=== PATIENT | male | born 1955 | race African-American/Black ===

== ENCOUNTER → 2016-11-12 | Outpatient (CLI) | payer BC ==
[2016-11-12 14:53] LABS: BASOPHILS % 0.7 % (0.0-2.0); EOSINOPHILS % 3.7 % (0.0-5.0); HEMATOCRIT. 44.5 % (42.0-52.0); HEMOGLOBIN. 14.7 g/dL (14.0-18.0); LYMPHOCYTES % 22.3 % (20.0-50.0); MONOCYTES % 10.1 % (2.0-8.0); NEUTROPHILS % 63.2 % (40.0-76.0); PLATELET 183 x1000/uL (130-400); RED BLOOD CELL COUNT 4.89 mill/uL (4.7-6.1); RED CELL DISTRIBUTION WIDTH 14.4 % (11.6-14.6)
[2016-11-12 14:58] LABS: ALANINE AMINOTRANSFERASE 51 IU/L (13-61); ALBUMIN 3.5 g/dL (3.4-5.0); ANION GAP 13; CARBON DIOXIDE 31 mEq/L (21-32); CHLORIDE 101 mEq/L (98-107); HDL CHOLESTEROL 52 mg/dL (40-59); INDEX HEMOLYSI 1 (1-3); INDEX ICTERIC 1 (1-4); INDEX LIPEMIC 1 (1-3); LDL CHOLESTEROL 55 mg/dL (5-100); TRIGLYCERIDE 188 mg/dL (0-150); UREA NITROGEN BLOOD 19 mg/dL (7-21); eGFR > 60 mL/min (>60)
[2016-11-14 10:47] LABS: *CREATININE RANDOM URINE 140.2 mg/dL (Not Estab.); MICROALBUMIN/CREATININE RATIO 55.6 mg/g creat (0.0-30.0)
[2016-11-16 04:17] LABS: % FREE PSA 31.5 % (.); PSA FREE 0.63 ng/mL
== END | disposition home or self-care (01) ==
LOC: LAB 13:59
PROVIDERS: ATTEND Family Medicine
DX: E11.21 Type 2 diabetes mellitus with diabetic nephropathy (principal); J45.20 Mild intermittent asthma, uncomplicated
CPT/HCPCS: 36415; 80053; 80061; 82043; 82570; 84153; 84154; 84403; 85025; 86803

== ENCOUNTER → 2018-04-05 | Outpatient (CLI) | payer BC ==
[2018-04-05 08:52] LABS: CHLORIDE 98 mEq/L (98-107)
[2018-04-05 09:00] LABS: LDL CHOLESTEROL 42 mg/dL (5-100)
[2018-04-05 09:03] LABS: HDL CHOLESTEROL 38 mg/dL (40-59)
[2018-04-06 08:30] LABS: *CREATININE RANDOM URINE 85.3 mg/dL (Not Estab.); MICROALBUMIN RANDOM URINE 47.5 ug/mL (Not Estab.)
== END | disposition home or self-care (01) ==
LOC: LAB 07:32
PROVIDERS: ATTEND Family Medicine
DX: E11.21 Type 2 diabetes mellitus with diabetic nephropathy (principal); E78.1 Pure hyperglyceridemia
CPT/HCPCS: 36415; 80053; 80061; 82043; 82570; 83036

== ENCOUNTER → 2018-05-19 | Outpatient (CLI) | payer BC | END | disposition home or self-care (01) | LOC: LAB 12:30 | PROVIDERS: ATTEND Family Medicine | DX: E11.21 Type 2 diabetes mellitus with diabetic nephropathy (principal); E11.69 Type 2 diabetes mellitus with other specified complication | CPT/HCPCS: 36415; 84132 ==

== ENCOUNTER → 2019-03-13 | Outpatient (CLI) | payer BC ==
[2019-03-15 08:07] LABS: % FREE PSA 34.1 % (.); PROSTATE SPECIFIC AG TOTAL 1.7 ng/mL (0.0-4.0); PSA FREE 0.58 ng/mL
== END | disposition home or self-care (01) ==
LOC: LAB 12:39
DX: N40.0 Benign prostatic hyperplasia without lower urinary tract symptoms (principal)
CPT/HCPCS: 36415; 84153; 84154; G0103

== ENCOUNTER → 2020-07-31 | Outpatient (CLI) | payer BC ==
[2020-07-31 13:01] LABS: BASOPHILS % 1.2 % (0.0-2.0); EOSINOPHILS % 3.2 % (0.0-5.0); HEMATOCRIT. 41.6 % (42.0-52.0); HEMOGLOBIN. 13.7 g/dL (14.0-18.0); LYMPHOCYTES % 26.1 % (20.0-50.0); MEAN CORPUSCULAR HEMOGLOBIN 30.6 pg (28.0-32.0); MEAN CORPUSCULAR VOLUME 93.1 fL (80.0-94.0); MEAN PLATELET VOLUME 7.4 fl (7.4-10.4); MONOCYTES % 11.2 % (2.0-8.0); NEUTROPHILS % 58.3 % (40.0-76.0); PLATELET 166 x1000/uL (130-400); RED BLOOD CELL COUNT 4.47 mill/uL (4.7-6.1); RED CELL DISTRIBUTION WIDTH 14.6 % (11.6-14.6)
[2020-07-31 13:19] LABS: CHLORIDE 106 mEq/L (98-107)
== END | disposition home or self-care (01) ==
LOC: LAB 12:09
PROVIDERS: ATTEND Podiatrist Foot & Ankle Surgery
DX: L97.524 Non-pressure chronic ulcer of other part of left foot with necrosis of bone (principal); E11.621 Type 2 diabetes mellitus with foot ulcer; E11.42 Type 2 diabetes mellitus with diabetic polyneuropathy; M86.172 Other acute osteomyelitis, left ankle and foot
CPT/HCPCS: 36415; 80053; 85025; 85651

== ENCOUNTER → 2020-08-28 | Outpatient (CLI) | payer BC ==
[2020-08-28 12:51] LABS: BASOPHILS % 0.7 % (0.0-2.0); HEMATOCRIT. 43.9 % (42.0-52.0); HEMOGLOBIN. 14.4 g/dL (14.0-18.0); LYMPHOCYTES % 21.7 % (20.0-50.0); MEAN CORPUSCULAR HEMOGLOBIN 30.7 pg (28.0-32.0); MEAN CORPUSCULAR VOLUME 93.6 fL (80.0-94.0); MEAN PLATELET VOLUME 8.3 fl (7.4-10.4); MONOCYTES % 13.8 % (2.0-8.0); NEUTROPHILS % 59.8 % (40.0-76.0); PLATELET 147 x1000/uL (130-400); RED BLOOD CELL COUNT 4.69 mill/uL (4.7-6.1); RED CELL DISTRIBUTION WIDTH 14.4 % (11.6-14.6)
[2020-08-28 13:23] LABS: CLARITY URINE CLEAR (CLEAR); COLOR URINE YELLOW (YELLOW); KETONES URINE NEGATIVE (NEGATIVE); LEUKOCYTE ESTERASE URINE NEGATIVE (NEGATIVE); NITRITE URINE NEGATIVE (NEGATIVE); OCCULT BLOOD URINE NEGATIVE (NEGATIVE); PH URINE 6.5 (4.5-8.0); PROTEIN URINE NEGATIVE (NEGATIVE); SPECIFIC GRAVITY URINE 1.015 (1.005-1.030)
[2020-08-28 14:24] LABS: FOLIC ACID (FOLATE) SERUM 10.4 ng/mL (>5.38)
[2020-08-29 08:08] LABS: PROSTATE SPECIFIC AG TOTAL 0.5 ng/mL (0.0-4.0); PSA FREE 0.08 ng/mL
== END | disposition home or self-care (01) ==
LOC: LAB 12:08
PROVIDERS: ATTEND Family Medicine
DX: Z00.00 Encounter for general adult medical examination without abnormal findings (principal)
CPT/HCPCS: 36415; 80061; 81003; 82607; 82728; 82746; 83036; 83540; 83550; 84153; 84154; 85025

== ENCOUNTER → 2020-12-30 | Outpatient (CLI) | payer BC | END | disposition home or self-care (01) | LOC: LAB 15:32 | PROVIDERS: ATTEND Specialist | DX: C61 Malignant neoplasm of prostate (principal) | CPT/HCPCS: 36415; 84153; G0103 ==

== ENCOUNTER → 2021-06-16 | Outpatient (CLI) | payer BC | END | disposition home or self-care (01) | LOC: LAB 15:33 | PROVIDERS: ATTEND Specialist | DX: C61 Malignant neoplasm of prostate (principal) | CPT/HCPCS: 36415; 84153; G0103 ==

== ENCOUNTER → 2021-12-25 | Outpatient (CLI) | payer BC ==
[2021-12-25 17:55] LABS: BASOPHILS % 0.3 % (0.0-2.0); EOSINOPHILS % 2.2 % (0.0-5.0); HEMATOCRIT. 42.6 % (42.0-52.0); HEMOGLOBIN. 13.7 g/dL (14.0-18.0); LYMPHOCYTES % 28.5 % (20.0-50.0); MEAN CORPUSCULAR HEMOGLOBIN 29.8 pg (28.0-32.0); MEAN CORPUSCULAR VOLUME 92.7 fL (80.0-94.0); MEAN PLATELET VOLUME 8.4 fl (7.4-10.4); MONOCYTES % 14.2 % (2.0-8.0); NEUTROPHILS % 54.8 % (40.0-76.0); PLATELET 140 x1000/uL (130-400); RED CELL DISTRIBUTION WIDTH 15.1 % (11.6-14.6)
[2021-12-25 17:59] LABS: CHLORIDE 105 mEq/L (98-107)
[2021-12-25 18:14] LABS: HDL CHOLESTEROL 60 mg/dL (40-59); LDL CHOLESTEROL 26 mg/dL (5-100); T4 FREE 0.92 ng/dL (0.76-1.46)
== END | disposition home or self-care (01) ==
LOC: LAB 16:26
PROVIDERS: ATTEND Specialist
DX: D64.9 Anemia, unspecified (principal); E11.9 Type 2 diabetes mellitus without complications; E55.9 Vitamin D deficiency, unspecified; E78.2 Mixed hyperlipidemia
CPT/HCPCS: 36415; 80053; 80061; 82306; 83036; 84439; 84443; 84481; 85025

== ENCOUNTER → 2022-01-08 | Outpatient (CLI) | payer BC | END | disposition home or self-care (01) | LOC: CARD 09:29 | PROVIDERS: ATTEND Specialist | DX: I34.8 Other nonrheumatic mitral valve disorders (principal); I51.7 Cardiomegaly; I42.9 Cardiomyopathy, unspecified; R94.31 Abnormal electrocardiogram [ECG] [EKG] | CPT/HCPCS: 93306 ==

== ENCOUNTER → 2022-01-27 | Outpatient (CLI) | payer BC ==
[~2022-01-27] VITALS: Ht 172.7 cm; Wt 104.3 kg
[~2022-01-27] MED LIST: IOHEXOL-350 100 ML BOTTLE ONE; NITROGLYCERIN SPRAY/4.9GM CAN TL ONE
== END | disposition home or self-care (01) ==
LOC: PVL 08:52
PROVIDERS: ATTEND Specialist
DX: I73.89 Other specified peripheral vascular diseases (principal); R94.31 Abnormal electrocardiogram [ECG] [EKG]; I25.10 Atherosclerotic heart disease of native coronary artery without angina pectoris
CPT/HCPCS: 75571; 93880; 93923; Q9967; Z7610

== ENCOUNTER → 2022-10-27 | Outpatient (CLI) | payer BC ==
[2022-10-27 16:27] LABS: BASOPHILS % 0.3 % (0.0-2.0); EOSINOPHILS % 0.9 % (0.0-5.0); HEMATOCRIT. 36.5 % (42.0-52.0); HEMOGLOBIN. 11.8 g/dL (14.0-18.0); LYMPHOCYTES % 16.5 % (20.0-50.0); MEAN CORPUSCULAR HEMOGLOBIN 30.6 pg (28.0-32.0); MEAN CORPUSCULAR VOLUME 94.4 fL (80.0-94.0); MEAN PLATELET VOLUME 8.3 fl (7.4-10.4); MONOCYTES % 9.7 % (2.0-8.0); NEUTROPHILS % 72.6 % (40.0-76.0); PLATELET 174 x1000/uL (130-400); RED BLOOD CELL COUNT 3.87 mill/uL (4.7-6.1); RED CELL DISTRIBUTION WIDTH 15.6 % (11.6-14.6)
[2022-10-27 16:35] LABS: CHLORIDE 109 mEq/L (98-107)
[2022-10-27 16:49] LABS: HDL CHOLESTEROL 51 mg/dL (40-59); LDL CHOLESTEROL 36 mg/dL (5-100); T4 FREE 0.93 ng/dL (0.76-1.46)
== END | disposition home or self-care (01) ==
LOC: RAD 15:48
PROVIDERS: ATTEND Specialist
DX: E11.9 Type 2 diabetes mellitus without complications (principal); E78.2 Mixed hyperlipidemia; E55.9 Vitamin D deficiency, unspecified; D64.9 Anemia, unspecified
CPT/HCPCS: 36415; 80053; 80061; 82306; 83036; 84439; 84443; 84481; 85025

== ENCOUNTER → 2022-11-02 | Outpatient (CLI) | payer BC | END | disposition home or self-care (01) | LOC: LAB 16:29 | PROVIDERS: ATTEND Specialist | DX: J98.09 Other diseases of bronchus, not elsewhere classified (principal); R05.9 Cough, unspecified | CPT/HCPCS: 71046 ==

== ENCOUNTER → 2023-01-03 | Outpatient (CLI) | payer BC ==
[2023-01-03 16:34] LABS: HEMATOCRIT. 35.1 % (42.0-52.0); HEMOGLOBIN. 11.7 g/dL (14.0-18.0); MEAN CORPUSCULAR HEMOGLOBIN 31.1 pg (28.0-32.0); MEAN CORPUSCULAR VOLUME 93.6 fL (80.0-94.0); MEAN PLATELET VOLUME 8.5 fl (7.4-10.4); PLATELET 143 x1000/uL (130-400); RED BLOOD CELL COUNT 3.75 mill/uL (4.7-6.1); RED CELL DISTRIBUTION WIDTH 14.4 % (11.6-14.6)
[2023-01-03 16:56] LABS: CHLORIDE 103 mEq/L (98-107)
[2023-01-03 17:13] LABS: HDL CHOLESTEROL 42 mg/dL (40-59); LDL CHOLESTEROL 75 mg/dL (5-100); T4 FREE 1.08 ng/dL (0.76-1.46)
[2023-01-03 17:21] LABS: PLATELET ESTIMATE NORMAL
== END | disposition home or self-care (01) ==
LOC: LAB 15:39
PROVIDERS: ATTEND Specialist
DX: E11.9 Type 2 diabetes mellitus without complications (principal); E78.2 Mixed hyperlipidemia
CPT/HCPCS: 36415; 80053; 80061; 82306; 83036; 84153; 84439; 84443; 84481; 85025; G0103

== ENCOUNTER 2023-02-28 20:49 | Inpatient (IN) | payer BC ==
[~2023-02-28] VITALS: Ht 203.2 cm; Wt 97.1 kg
[2023-03-01] MEDS ORDERED: ACETAMINOPHEN 325MG TABLET PO STA (00:54)
[2023-03-01] MEDS ORDERED: PIPERACILLIN/TAZ 3.375G PREMIX 50 ML IV ONE (01:00)
[2023-03-01 03:15] LABS: CHLORIDE 106 mEq/L (98-107)
[2023-03-01 03:41] LABS: BASOPHILS % 0.5 % (0.0-2.0); EOSINOPHILS % 1.6 % (0.0-5.0); HEMATOCRIT. 31.7 % (42.0-52.0); HEMOGLOBIN. 10.2 g/dL (14.0-18.0); LYMPHOCYTES % 16.1 % (20.0-50.0); MEAN CORPUSCULAR HEMOGLOBIN 29.3 pg (28.0-32.0); MEAN CORPUSCULAR VOLUME 91.5 fL (80.0-94.0); MEAN PLATELET VOLUME 7.6 fl (7.4-10.4); MONOCYTES % 8.5 % (2.0-8.0); NEUTROPHILS % 73.3 % (40.0-76.0); PLATELET 298 x1000/uL (130-400); RED BLOOD CELL COUNT 3.46 mill/uL (4.7-6.1); RED CELL DISTRIBUTION WIDTH 15.3 % (11.6-14.6)
[2023-03-01 05:37] LABS: INR 1.1; PROTHROMBIN TIME 12.2 sec (9.6-11.0)
[2023-03-01 07:30] VITALS: BP 120/69; PULSE 84; RESP 16; TEMP 98.2
[2023-03-01 08:00] VITALS: BP 107/59; PULSE 66; RESP 15; TEMP 98.8
[2023-03-01] MEDS ORDERED: ONDANSETRON HCL 4MG/2ML INJ IV PRN (08:00)
[2023-03-01] MEDS ORDERED: ACETAMINOPHEN 325MG TABLET PO PRN (08:00)
[2023-03-01] MEDS ORDERED: DEXTROSE 50% WATER 50ML SYRINGE IV PRN (08:00)
[2023-03-01] MEDS ORDERED: ENOXAPARIN 40MG/0.4ML SYR SUBCUT SCH (09:00)
[2023-03-01] MEDS ORDERED: VANCOMYCIN 2,000 MG in DEXT 5% WATER 500 ML IV SCH (10:00)
[2023-03-01 12:00] VITALS: BP 106/58; PULSE 70; RESP 18; TEMP 97.5
[2023-03-01] MEDS: LEVOFLOXACIN 500MG PREMIX 100 ML IV SCH (12:10)
[2023-03-01] MEDS: BLOOD SUGAR DIAGNOSTIC STRIP TEST SCH ×3 (12:20→21:00)
[2023-03-01] MEDS: INSULIN LISPRO 100 UNITS/ML SUBCUT SCH ×3 (13:10→21:56)
[2023-03-01 16:00] VITALS: BP 110/55; PULSE 66; RESP 17; TEMP 97.7
[2023-03-01 20:00] VITALS: BP 126/65; PULSE 79; RESP 17; TEMP 98.6
[2023-03-01] MEDS: INSULIN GLARGINE 100 UNITS/ML SUBCUT SCH (21:56)
[2023-03-02] VITALS: BP 124/58; PULSE 87; RESP 20; TEMP 100.2
[2023-03-02 04:00] VITALS: BP 121/61; PULSE 68; RESP 18; TEMP 99.7
[2023-03-02] MEDS: VANCOMYCIN 1.25GM PMX (XELLIA) 250 ML IV SCH (05:47)
[2023-03-02] MEDS: BLOOD SUGAR DIAGNOSTIC STRIP TEST SCH ×4 (07:20→21:00)
[2023-03-02] MEDS: INSULIN LISPRO 100 UNITS/ML SUBCUT SCH ×4 (07:50→22:15)
[2023-03-02 08:00] VITALS: BP 120/61; PULSE 71; RESP 18; TEMP 98.2
[2023-03-02] MEDS: LEVOFLOXACIN 500MG PREMIX 100 ML IV SCH (10:39)
[2023-03-02] MEDS: INSULIN GLARGINE 100 UNITS/ML SUBCUT SCH ×2 (11:06→22:14)
[2023-03-02 12:00] VITALS: BP 117/66; PULSE 88; RESP 18; TEMP 98
[2023-03-02] MEDS: ENOXAPARIN 30MG/0.3ML SYR SUBCUT SCH ×2 (12:35→22:10)
[2023-03-02 17:11] VITALS: BP 113/56; PULSE 67; RESP 18; TEMP 98.2
[2023-03-02 20:00] VITALS: BP 135/67; PULSE 77; RESP 17; TEMP 97.6
[2023-03-03] VITALS: BP 129/64; PULSE 74; RESP 18; TEMP 98.2
[2023-03-03] MEDS: VANCOMYCIN 1.25GM PMX (XELLIA) 250 ML IV SCH ×2 (00:36→17:33)
[2023-03-03] MEDS: BLOOD SUGAR DIAGNOSTIC STRIP TEST SCH ×4 (06:08→21:02)
[2023-03-03 08:00] VITALS: BP 109/73; PULSE 80; RESP 20; TEMP 98.3
[2023-03-03] MEDS: ENOXAPARIN 30MG/0.3ML SYR SUBCUT SCH ×2 (08:27→21:22)
[2023-03-03] MEDS: INSULIN LISPRO 100 UNITS/ML SUBCUT SCH ×4 (09:40→21:00)
[2023-03-03 09:57] LABS: BASOPHILS % 0.5 % (0.0-2.0); EOSINOPHILS % 2.8 % (0.0-5.0); HEMATOCRIT. 29.3 % (42.0-52.0); HEMOGLOBIN. 9.7 g/dL (14.0-18.0); LYMPHOCYTES % 13.2 % (20.0-50.0); MEAN CORPUSCULAR HEMOGLOBIN 29.6 pg (28.0-32.0); MEAN CORPUSCULAR VOLUME 89.7 fL (80.0-94.0); MEAN PLATELET VOLUME 7.6 fl (7.4-10.4); MONOCYTES % 8.9 % (2.0-8.0); NEUTROPHILS % 74.6 % (40.0-76.0); PLATELET 273 x1000/uL (130-400); RED BLOOD CELL COUNT 3.27 mill/uL (4.7-6.1); RED CELL DISTRIBUTION WIDTH 15.4 % (11.6-14.6)
[2023-03-03] MEDS: INSULIN GLARGINE 100 UNITS/ML SUBCUT SCH ×2 (10:00→23:22)
[2023-03-03 10:16] LABS: CHLORIDE 104 mEq/L (98-107)
[2023-03-03] MEDS ORDERED: LIDOCAINE HCL 1% 10 MG/ML 10ML VIAL ONE (11:34)
[2023-03-03] MEDS: LEVOFLOXACIN 500MG PREMIX 100 ML IV SCH (12:00)
[2023-03-03 20:00] VITALS: BP 103/66; PULSE 84; RESP 18; TEMP 98.2
[2023-03-03] MEDS ORDERED: NALOXONE HCL 0.4MG/ML VIAL IV PRN (21:15)
[2023-03-03] MEDS: HYDROCODONE/ACETAMINOPHEN 10/325MG TABLET PO PRN (21:16)
[2023-03-04 04:00] VITALS: BP 131/66; PULSE 63; RESP 18; TEMP 97.9
[2023-03-04] MEDS: INSULIN LISPRO 100 UNITS/ML SUBCUT SCH ×5 (06:59→22:11)
[2023-03-04] MEDS: BLOOD SUGAR DIAGNOSTIC STRIP TEST SCH ×4 (06:59→21:12)
[2023-03-04 08:34] VITALS: BP 117/63; PULSE 63; RESP 18; TEMP 97.5
[2023-03-04] MEDS: ENOXAPARIN 30MG/0.3ML SYR SUBCUT SCH ×2 (08:36→21:12)
[2023-03-04] MEDS: HYDROCODONE/ACETAMINOPHEN 10/325MG TABLET PO PRN ×2 (08:37→21:33)
[2023-03-04] MEDS: LEVOFLOXACIN 500MG PREMIX 100 ML IV SCH (11:15)
[2023-03-04] MEDS: INSULIN GLARGINE 100 UNITS/ML SUBCUT SCH ×2 (12:11→22:31)
[2023-03-04] MEDS: VANCOMYCIN 1.25GM PMX (XELLIA) 250 ML IV SCH (13:26)
[2023-03-04 20:00] VITALS: BP 120/63; PULSE 83; RESP 18; TEMP 97.6
[2023-03-05] MEDS: VANCOMYCIN 1.25GM PMX (XELLIA) 250 ML IV SCH (06:27)
[2023-03-05] MEDS: BLOOD SUGAR DIAGNOSTIC STRIP TEST SCH ×4 (08:12→21:13)
[2023-03-05] MEDS: ENOXAPARIN 30MG/0.3ML SYR SUBCUT SCH ×2 (08:23→21:08)
[2023-03-05] MEDS: INSULIN LISPRO 100 UNITS/ML SUBCUT SCH ×3 (08:25→21:13)
[2023-03-05] MEDS: HYDROCODONE/ACETAMINOPHEN 10/325MG TABLET PO PRN ×2 (09:16→21:07)
[2023-03-05 12:00] VITALS: BP 131/63; PULSE 62; RESP 20; TEMP 98.1
[2023-03-05] MEDS: INSULIN GLARGINE 100 UNITS/ML SUBCUT SCH ×2 (13:37→21:13)
[2023-03-05] MEDS: LEVOFLOXACIN 500MG PREMIX 100 ML IV SCH (15:46)
[2023-03-05 16:00] VITALS: BP 119/63; PULSE 62; RESP 19; TEMP 97.5
[2023-03-05 20:00] VITALS: BP 117/79; PULSE 82; RESP 18; TEMP 91.6
[2023-03-06] VITALS: BP 133/74; PULSE 85; RESP 18; TEMP 97.9
[2023-03-06] MEDS: VANCOMYCIN 1.25GM PMX (XELLIA) 250 ML IV SCH (00:38)
[2023-03-06] MEDS: HYDROCODONE/ACETAMINOPHEN 10/325MG TABLET PO PRN ×3 (00:39→20:35)
[2023-03-06] MEDS: INSULIN LISPRO 100 UNITS/ML SUBCUT SCH ×4 (07:50→21:00)
[2023-03-06 08:00] VITALS: BP_SYST 109; BP_SYST 113; BP_DIAS 51; BP_DIAS 64; PULSE 59; PULSE 84; RESP 20; TEMP 96.7; TEMP 99.1
[2023-03-06] MEDS: BLOOD SUGAR DIAGNOSTIC STRIP TEST SCH ×4 (08:06→20:27)
[2023-03-06] MEDS: ENOXAPARIN 30MG/0.3ML SYR SUBCUT SCH ×2 (09:08→20:28)
[2023-03-06] MEDS: LEVOFLOXACIN 500MG PREMIX 100 ML IV SCH (09:55)
[2023-03-06] MEDS: INSULIN GLARGINE 100 UNITS/ML SUBCUT SCH ×2 (09:59→21:46)
[2023-03-06 12:00] VITALS: BP 109/64; PULSE 84; RESP 20; TEMP 96
[2023-03-06 16:00] VITALS: BP 128/85; PULSE 84; RESP 19; TEMP 96.4
[2023-03-06 20:00] VITALS: BP 115/69; PULSE 86; RESP 18; TEMP 97.3
[2023-03-07] VITALS: BP 115/55; PULSE 66; RESP 18; TEMP 97.9
[2023-03-07] MEDS ORDERED: VANCOMYCIN 1.25GM PMX (XELLIA) 250 ML IV SCH
[2023-03-07] MEDS: HYDROCODONE/ACETAMINOPHEN 10/325MG TABLET PO PRN ×2 (06:50→21:29)
[2023-03-07] MEDS: BLOOD SUGAR DIAGNOSTIC STRIP TEST SCH ×4 (07:00→21:00)
[2023-03-07] MEDS: INSULIN LISPRO 100 UNITS/ML SUBCUT SCH ×4 (07:43→21:47)
[2023-03-07 08:00] VITALS: BP 119/54; PULSE 61; RESP 16; TEMP 97.7
[2023-03-07] MEDS ORDERED: LEVOFLOXACIN 500MG TABLET PO SCH (11:00)
[2023-03-07] MEDS: ENOXAPARIN 30MG/0.3ML SYR SUBCUT SCH ×2 (11:08→21:56)
[2023-03-07 12:00] VITALS: BP 120/60; PULSE 68; RESP 17; TEMP 97.1
[2023-03-07] MEDS: INSULIN GLARGINE 100 UNITS/ML SUBCUT SCH ×2 (12:40→21:47)
[2023-03-07] MEDS: PREDNISONE 20MG TABLET PO SCH (13:45)
[2023-03-07] MEDS ORDERED: COLCHICINE 0.6MG TABLET PO NR ×2 (15:00→16:00)
[2023-03-07] MEDS: INDOMETHACIN 25MG CAPSULE PO SCH ×2 (15:46→21:30)
[2023-03-07 16:00] VITALS: BP 118/58; PULSE 58; RESP 16; TEMP 97
[2023-03-07] MEDS: LINEZOLID 600MG TABLET PO SCH (17:11)
[2023-03-08] MEDS: INDOMETHACIN 25MG CAPSULE PO SCH ×3 (06:34→22:11)
[2023-03-08] MEDS: LINEZOLID 600MG TABLET PO SCH ×2 (06:34→18:26)
[2023-03-08] MEDS: BLOOD SUGAR DIAGNOSTIC STRIP TEST SCH ×4 (07:20→21:00)
[2023-03-08 07:44] LABS: CHLORIDE 107 mEq/L (98-107)
[2023-03-08] MEDS: INSULIN LISPRO 100 UNITS/ML SUBCUT SCH ×4 (07:50→22:12)
[2023-03-08 08:00] VITALS: BP 115/72; PULSE 84; RESP 20; TEMP 96.1
[2023-03-08] MEDS: PREDNISONE 20MG TABLET PO SCH (09:06)
[2023-03-08] MEDS: ENOXAPARIN 30MG/0.3ML SYR SUBCUT SCH ×2 (09:06→22:11)
[2023-03-08] MEDS: HYDROCODONE/ACETAMINOPHEN 10/325MG TABLET PO PRN (09:15)
[2023-03-08] MEDS: INSULIN GLARGINE 100 UNITS/ML SUBCUT SCH ×2 (10:10→22:14)
[2023-03-09] MEDS: LINEZOLID 600MG TABLET PO SCH (05:54)
[2023-03-09] MEDS: INDOMETHACIN 25MG CAPSULE PO SCH ×3 (05:54→21:10)
[2023-03-09] MEDS: BLOOD SUGAR DIAGNOSTIC STRIP TEST SCH ×4 (06:23→21:07)
[2023-03-09] MEDS: INSULIN LISPRO 100 UNITS/ML SUBCUT SCH ×4 (07:50→21:09)
[2023-03-09 08:00] VITALS: BP 123/61; PULSE 71; RESP 20; TEMP 97.5
[2023-03-09] MEDS: PREDNISONE 20MG TABLET PO SCH (09:45)
[2023-03-09] MEDS: ENOXAPARIN 30MG/0.3ML SYR SUBCUT SCH ×2 (09:46→21:10)
[2023-03-09] MEDS: INSULIN GLARGINE 100 UNITS/ML SUBCUT SCH ×2 (10:00→21:10)
[2023-03-09 12:00] VITALS: BP 107/60; PULSE 71; RESP 20; TEMP 97.9
[2023-03-09 15:08] LABS: CREATINE KINASE 28 IU/L (39-308)
[2023-03-09 16:00] VITALS: BP 153/53; PULSE 58; RESP 20; TEMP 99.1
[2023-03-09] MEDS: DAPTOMYCIN 800 MG in SODIUM CHLORIDE 0.9% 50 ML IV SCH (18:40)
[2023-03-09 20:00] VITALS: BP 160/75; PULSE 58; RESP 16; TEMP 98.7
[2023-03-10 02:33] VITALS: RESP 16
[2023-03-10] MEDS: INDOMETHACIN 25MG CAPSULE PO SCH ×3 (05:18→21:30)
[2023-03-10] MEDS: BLOOD SUGAR DIAGNOSTIC STRIP TEST SCH ×4 (07:20→21:00)
[2023-03-10] MEDS: INSULIN LISPRO 100 UNITS/ML SUBCUT SCH ×4 (07:50→23:50)
[2023-03-10 08:00] VITALS: BP 136/74; PULSE 67; RESP 20; TEMP 98.3
[2023-03-10] MEDS: PREDNISONE 20MG TABLET PO SCH (08:44)
[2023-03-10] MEDS: ENOXAPARIN 30MG/0.3ML SYR SUBCUT SCH ×2 (08:50→21:30)
[2023-03-10] MEDS: INSULIN GLARGINE 100 UNITS/ML SUBCUT SCH ×2 (10:00→23:52)
[2023-03-10 12:08] LABS: BASOPHILS % 0.4 % (0.0-2.0); EOSINOPHILS % 0.2 % (0.0-5.0); HEMOGLOBIN. 9.7 g/dL (14.0-18.0); LYMPHOCYTES % 8.7 % (20.0-50.0); MEAN CORPUSCULAR VOLUME 89.9 fL (80.0-94.0); MEAN PLATELET VOLUME 7.9 fl (7.4-10.4); MONOCYTES % 7.8 % (2.0-8.0); NEUTROPHILS % 82.9 % (40.0-76.0); PLATELET 184 x1000/uL (130-400); RED BLOOD CELL COUNT 3.23 mill/uL (4.7-6.1); RED CELL DISTRIBUTION WIDTH 15.6 % (11.6-14.6)
[2023-03-10 12:52] LABS: CHLORIDE 103 mEq/L (98-107)
[2023-03-10] MEDS ORDERED: NALOXONE HCL 0.4MG/ML VIAL IV PRN (16:30)
[2023-03-10] MEDS: DAPTOMYCIN 800 MG in SODIUM CHLORIDE 0.9% 50 ML IV SCH (18:15)
[2023-03-10 20:00] VITALS: BP 154/76; PULSE 83; RESP 16; TEMP 97.7
[2023-03-10] MEDS: HYDROCODONE/ACETAMINOPHEN 5/325MG TABLET PO PRN (23:49)
[2023-03-11] VITALS: BP 144/82; PULSE 69; RESP 18; TEMP 97.7
[2023-03-11 04:00] VITALS: BP 130/64; PULSE 70; RESP 16; TEMP 98.1
[2023-03-11] MEDS: INDOMETHACIN 25MG CAPSULE PO SCH ×3 (06:00→21:21)
[2023-03-11] MEDS: BLOOD SUGAR DIAGNOSTIC STRIP TEST SCH ×4 (06:58→21:09)
[2023-03-11 08:00] VITALS: BP 134/77; PULSE 85; RESP 20; TEMP 98.9
[2023-03-11] MEDS: INSULIN LISPRO 100 UNITS/ML SUBCUT SCH ×4 (08:35→21:22)
[2023-03-11] MEDS: PREDNISONE 20MG TABLET PO SCH (08:36)
[2023-03-11] MEDS: ENOXAPARIN 30MG/0.3ML SYR SUBCUT SCH (09:27)
[2023-03-11] MEDS: INSULIN GLARGINE 100 UNITS/ML SUBCUT SCH ×2 (10:39→21:22)
[2023-03-11 12:00] VITALS: BP 109/66; PULSE 63; RESP 20; TEMP 96.9
[2023-03-11 14:15] VITALS: BP 134/77; PULSE 20; TEMP 98.9; O2SAT 98
[2023-03-11 16:00] VITALS: BP 121/70; PULSE 57; RESP 18; TEMP 96.9
[2023-03-11] MEDS: DAPTOMYCIN 800 MG in SODIUM CHLORIDE 0.9% 50 ML IV SCH (18:34)
[2023-03-12] MEDS: HYDROCODONE/ACETAMINOPHEN 5/325MG TABLET PO PRN (00:18)
[2023-03-12] MEDS: INDOMETHACIN 25MG CAPSULE PO SCH ×2 (05:25→14:05)
[2023-03-12] MEDS: BLOOD SUGAR DIAGNOSTIC STRIP TEST SCH (06:53)
[2023-03-12] MEDS: INSULIN LISPRO 100 UNITS/ML SUBCUT SCH ×2 (07:50→14:45)
[2023-03-12 08:00] VITALS: BP 125/63; PULSE 68; RESP 18; TEMP 98.4
[2023-03-12] MEDS: PREDNISONE 20MG TABLET PO SCH (08:56)
[2023-03-12] MEDS ORDERED: ENOXAPARIN 40MG/0.4ML SYR SUBCUT SCH (09:00)
[2023-03-12 11:26] LABS: BASOPHILS % 0.5 % (0.0-2.0); HEMATOCRIT. 28.8 % (42.0-52.0); HEMOGLOBIN. 9.7 g/dL (14.0-18.0); LYMPHOCYTES % 11.2 % (20.0-50.0); MEAN CORPUSCULAR HEMOGLOBIN 29.9 pg (28.0-32.0); MEAN CORPUSCULAR VOLUME 88.7 fL (80.0-94.0); MONOCYTES % 11.4 % (2.0-8.0); NEUTROPHILS % 75.9 % (40.0-76.0); PLATELET 189 x1000/uL (130-400); RED BLOOD CELL COUNT 3.25 mill/uL (4.7-6.1); RED CELL DISTRIBUTION WIDTH 15.6 % (11.6-14.6)
[2023-03-12] MEDS: INSULIN GLARGINE 100 UNITS/ML SUBCUT SCH (11:36)
[2023-03-12 11:40] LABS: CHLORIDE 104 mEq/L (98-107)
[2023-03-12 12:00] VITALS: BP 125/63; PULSE 68; RESP 18; TEMP 98.4
[2023-03-12] MEDS ORDERED: INSULIN GLARGINE 100 UNITS/ML SUBCUT SCH (22:00)
== END 2023-03-12 14:23 | DRG 602 ==
LOC: ER 23:24 → 6WST 03-01 02:49
PROVIDERS: ADMIT Internal Medicine; ATTEND Internal Medicine
PROC: 0H9NXZZ Drainage of Left Foot Skin, External Approach (ICD-10-PCS; principal; 2023-03-03)
DX: L03.116 Cellulitis of left lower limb (principal); E43 Unspecified severe protein-calorie malnutrition; E87.1 Hypo-osmolality and hyponatremia; L02.612 Cutaneous abscess of left foot; E66.9 Obesity, unspecified; D64.9 Anemia, unspecified; E11.621 Type 2 diabetes mellitus with foot ulcer; J45.909 Unspecified asthma, uncomplicated; L97.529 Non-pressure chronic ulcer of other part of left foot with unspecified severity; M79.89 Other specified soft tissue disorders; Z79.4 Long term (current) use of insulin; Z68.23 Body mass index [BMI] 23.0-23.9, adult
CPT/HCPCS: 36415; 36573; 73130; 73630; 73721; 80048; 80053; 80202; 82550; 82962; 84145; 84550; 85025; 85651; 86850; 86900; 87070; 87077; 87186; 93005; 93922; 93923; 93970; 97022; 97161; 99285; C1725; J0878; J1650; J1815; J1956; J2543; J3370; J3490; J7060; J7512

== ENCOUNTER 2023-07-07 16:38 | Inpatient (IN) | payer BC, MEDICARE ==
[~2023-07-07] VITALS: Ht 170.2 cm; Wt 95.3 kg
[2023-07-07] MEDS ORDERED: SODIUM CHLORIDE 0.9% 1,000 ML IV ONE (17:15)
[2023-07-07 18:21] LABS: BASOPHILS % 0.2 % (0.0-2.0); EOSINOPHILS % 0.6 % (0.0-5.0); HEMATOCRIT. 29.6 % (42.0-52.0); HEMOGLOBIN. 9.2 g/dL (14.0-18.0); LYMPHOCYTES % 7.7 % (20.0-50.0); MEAN CORPUSCULAR HGB CONC 31.2 g/dL (31.0-37.0); MEAN CORPUSCULAR VOLUME 89.6 fL (80.0-94.0); MONOCYTES % 9.9 % (2.0-8.0); NEUTROPHILS % 81.6 % (40.0-76.0); PLATELET 242 x1000/uL (130-400); RED CELL DISTRIBUTION WIDTH 20.6 % (11.6-14.6); WHITE BLOOD COUNT 12.9 x1000/uL (4.5-11.0)
[2023-07-07 18:31] LABS: ALANINE AMINOTRANSFERASE 52 IU/L (10-49); ALBUMIN 3.8 g/dL (3.2-4.8); ASPARTATE AMINOTRANSFERASE 55 IU/L (<34); BILIRUBIN TOTAL 1.7 mg/dL (0.1-1.0); CALCIUM 9.6 mg/dL (8.7-10.4); CARBON DIOXIDE 25 mEq/L (21-32); CHLORIDE 98 mEq/L (98-107); CREATININE 1.1 mg/dL (0.6-1.3); GLUCOSE 328 mg/dL (70-105); POTASSIUM 5.2 mEq/L (3.5-5.1); PROTEIN TOTAL 7.6 g/dL (6.0-8.3); SODIUM 131 mEq/L (136-145); UREA NITROGEN BLOOD 30 mg/dL (9-23)
[2023-07-07 18:46] LABS: BETA HYDROXYBUTYRATE 0.9 mMol/L (0.0-0.3)
[2023-07-07] MEDS ORDERED: VANCOMYCIN 1G PREMIX 200 ML IV SCH (20:30)
[2023-07-07] MEDS ORDERED: PIPERACILLIN/TAZOBACTAM 3.375GM/50ML PREMIX IV NR (20:30)
[2023-07-07] MEDS ORDERED: CLONIDINE 0.1MG TABLET PO PRN (23:30)
[2023-07-07] MEDS ORDERED: MAGNESIUM/ALUMINUM HYDROXIDE/SIMETHICONE 30ML UDC PO PRN (23:30)
[2023-07-07] MEDS ORDERED: ONDANSETRON HCL 4MG/2ML INJ IV PRN (23:30)
[2023-07-07] MEDS ORDERED: DOCUSATE SODIUM 100MG CAPSULE PO PRN (23:30)
[2023-07-08] VITALS (7 sets, daily range): BP systolic 95–153; BP diastolic 45–89; PULSE 75–86; RESP 18–20; TEMP 95.6–98.8
[2023-07-08] MEDS ORDERED: DEXTROSE 50% WATER 50ML SYRINGE IV PRN
[2023-07-08] MEDS ORDERED: INSULIN REGULAR (HUMULIN R) 300UNITS/3ML VIAL IV NR
[2023-07-08] MEDS: SODIUM CHLORIDE 0.9% 1,000 ML IV SCH ×2 (00:34→13:20)
[2023-07-08] MEDS: ACETAMINOPHEN 650MG/20.3ML UDC GT PRN ×2 (00:41→09:55)
[2023-07-08 01:52] LABS: IRON 28 ug/dL (65-175)
[2023-07-08 01:54] LABS: TOTAL IRON BINDING CAPACITY > 670 ug/dl (250-425)
[2023-07-08] MEDS: PIPERACILLIN/TAZOBACTAM 3.375 G in DEXTROSE 5% WATER 50 ML IV SCH ×3 (05:03→21:01)
[2023-07-08] MEDS ORDERED: PIPERACILLIN/TAZOBACTAM 3.375 G in DEXTROSE 5% WATER 50 ML IV SCH (06:00)
[2023-07-08] MEDS: BLOOD SUGAR DIAGNOSTIC STRIP TEST SCH ×4 (06:48→20:39)
[2023-07-08 07:16] LABS: HEMATOCRIT. 31.6 % (42.0-52.0); HEMOGLOBIN. 10.1 g/dL (14.0-18.0); MEAN CORPUSCULAR HEMOGLOBIN 28.6 pg (28.0-32.0); MEAN CORPUSCULAR HGB CONC 31.9 g/dL (31.0-37.0); MEAN CORPUSCULAR VOLUME 89.8 fL (80.0-94.0); MEAN PLATELET VOLUME 8.7 fl (7.4-10.4); PLATELET 250 x1000/uL (130-400); RED BLOOD CELL COUNT 3.52 mill/uL (4.7-6.1); WHITE BLOOD COUNT 12.2 x1000/uL (4.5-11.0)
[2023-07-08 07:28] LABS: DIFFERENTIAL COMMENT 1
[2023-07-08 07:34] LABS: ALANINE AMINOTRANSFERASE 50 IU/L (10-49); ALBUMIN 3.8 g/dL (3.2-4.8); ASPARTATE AMINOTRANSFERASE 58 IU/L (<34); BILIRUBIN TOTAL 1.6 mg/dL (0.1-1.0); CALCIUM 9.5 mg/dL (8.7-10.4); CARBON DIOXIDE 22 mEq/L (21-32); CHLORIDE 100 mEq/L (98-107); CREATINE KINASE 31 IU/L (46-171); GLUCOSE 233 mg/dL (70-105); POTASSIUM 4.6 mEq/L (3.5-5.1); PROTEIN TOTAL 7.8 g/dL (6.0-8.3); SODIUM 132 mEq/L (136-145); T4 FREE 1.16 ng/dL (0.89-1.76); UREA NITROGEN BLOOD 25 mg/dL (9-23)
[2023-07-08] MEDS: INSULIN LISPRO 100 UNITS/ML SUBCUT SCH ×3 (08:27→21:09)
[2023-07-08] MEDS: ENOXAPARIN 40MG/0.4ML SYR SUBCUT SCH (08:41)
[2023-07-08] MEDS: INSULIN GLARGINE 100 UNITS/ML SUBCUT SCH ×4 (09:40→21:10)
[2023-07-08] MEDS ORDERED: VANCOMYCIN 750MG PREMIX 150 ML IV SCH (11:00)
[2023-07-08] MEDS ORDERED: VANCOMYCIN 1G PREMIX 200 ML IV SCH (11:00)
[2023-07-08] MEDS ORDERED: VANCOMYCIN 500MG PREMIX 100 ML IV SCH (12:00)
[2023-07-08 17:09] LABS: CREATINE KINASE 17 IU/L (46-171)
[2023-07-08] MEDS: DAPTOMYCIN 750 MG in SODIUM CHLORIDE 0.9% 50 ML IV SCH (17:51)
[2023-07-08 19:06] LABS: PLATELET ESTIMATE NORMAL
[2023-07-08 19:07] LABS: ANISOCYTOSIS 1+
[2023-07-09] MEDS: ACETAMINOPHEN 650MG/20.3ML UDC GT PRN ×2 (01:39→18:16)
[2023-07-09 04:00] VITALS: BP 120/56; PULSE 82; RESP 20; TEMP 98.2
[2023-07-09] MEDS: PIPERACILLIN/TAZOBACTAM 3.375 G in DEXTROSE 5% WATER 50 ML IV SCH ×3 (05:35→22:04)
[2023-07-09 06:40] LABS: BASOPHILS % 0.4 % (0.0-2.0); EOSINOPHILS % 2.6 % (0.0-5.0); HEMATOCRIT. 26.1 % (42.0-52.0); HEMOGLOBIN. 8.5 g/dL (14.0-18.0); LYMPHOCYTES % 9.4 % (20.0-50.0); MEAN CORPUSCULAR HEMOGLOBIN 28.5 pg (28.0-32.0); MEAN CORPUSCULAR HGB CONC 32.4 g/dL (31.0-37.0); MEAN CORPUSCULAR VOLUME 87.7 fL (80.0-94.0); MEAN PLATELET VOLUME 8.2 fl (7.4-10.4); MONOCYTES % 7.6 % (2.0-8.0); PLATELET 246 x1000/uL (130-400); RED BLOOD CELL COUNT 2.97 mill/uL (4.7-6.1); RED CELL DISTRIBUTION WIDTH 20.9 % (11.6-14.6); WHITE BLOOD COUNT 11.1 x1000/uL (4.5-11.0)
[2023-07-09 06:57] LABS: ALANINE AMINOTRANSFERASE 43 IU/L (10-49); ALBUMIN 3.1 g/dL (3.2-4.8); ASPARTATE AMINOTRANSFERASE 54 IU/L (<34); BILIRUBIN TOTAL 1.3 mg/dL (0.1-1.0); CALCIUM 8.8 mg/dL (8.7-10.4); CARBON DIOXIDE 24 mEq/L (21-32); CHLORIDE 104 mEq/L (98-107); CREATININE 0.9 mg/dL (0.6-1.3); GLUCOSE 115 mg/dL (70-105); POTASSIUM 4.1 mEq/L (3.5-5.1); PROTEIN TOTAL 6.9 g/dL (6.0-8.3); SODIUM 137 mEq/L (136-145); UREA NITROGEN BLOOD 20 mg/dL (9-23)
[2023-07-09] MEDS: BLOOD SUGAR DIAGNOSTIC STRIP TEST SCH ×4 (07:20→20:36)
[2023-07-09] MEDS: SODIUM CHLORIDE 0.9% 1,000 ML IV SCH ×2 (07:30→21:11)
[2023-07-09] MEDS: INSULIN LISPRO 100 UNITS/ML SUBCUT SCH ×4 (07:50→21:24)
[2023-07-09 08:00] VITALS: BP 112/53; PULSE 81; RESP 19; TEMP 97.7
[2023-07-09] MEDS: ENOXAPARIN 40MG/0.4ML SYR SUBCUT SCH (08:43)
[2023-07-09] MEDS: INSULIN GLARGINE 100 UNITS/ML SUBCUT SCH ×2 (10:00→22:25)
[2023-07-09] MEDS ORDERED: TIMO15DR12 EACHEYE (11:05)
[2023-07-09 12:00] VITALS: BP 113/62; PULSE 83; RESP 18; TEMP 97.9
[2023-07-09 16:00] VITALS: BP 121/62; PULSE 88; RESP 19; TEMP 98.1
[2023-07-09] MEDS: DAPTOMYCIN 750 MG in SODIUM CHLORIDE 0.9% 50 ML IV SCH (17:08)
[2023-07-09 20:00] VITALS: BP 118/76; PULSE 66; RESP 20; TEMP 97.5
[2023-07-09] MEDS: MAGNESIUM OXIDE 400MG TABLET PO SCH (21:11)
[2023-07-10] VITALS: BP 115/64; PULSE 63; RESP 20; TEMP 97.8
[2023-07-10 04:00] VITALS: BP 122/61; PULSE 73; RESP 20; TEMP 97.6
[2023-07-10] MEDS: BLOOD SUGAR DIAGNOSTIC STRIP TEST SCH ×4 (06:26→21:00)
[2023-07-10] MEDS: PIPERACILLIN/TAZOBACTAM 3.375 G in DEXTROSE 5% WATER 50 ML IV SCH ×3 (06:35→22:00)
[2023-07-10 07:32] LABS: BASOPHILS % 0.7 % (0.0-2.0); EOSINOPHILS % 1.6 % (0.0-5.0); HEMATOCRIT. 26.9 % (42.0-52.0); HEMOGLOBIN. 8.3 g/dL (14.0-18.0); LYMPHOCYTES % 10.2 % (20.0-50.0); MEAN CORPUSCULAR HEMOGLOBIN 27.7 pg (28.0-32.0); MEAN CORPUSCULAR HGB CONC 30.8 g/dL (31.0-37.0); MEAN CORPUSCULAR VOLUME 89.9 fL (80.0-94.0); MEAN PLATELET VOLUME 8.4 fl (7.4-10.4); NEUTROPHILS % 83.5 % (40.0-76.0); PLATELET 283 x1000/uL (130-400); RED BLOOD CELL COUNT 2.99 mill/uL (4.7-6.1); RED CELL DISTRIBUTION WIDTH 20.7 % (11.6-14.6)
[2023-07-10] MEDS: INSULIN LISPRO 100 UNITS/ML SUBCUT SCH ×3 (07:50→18:16)
[2023-07-10 08:00] VITALS: BP 115/58; PULSE 77; RESP 18; TEMP 98.2
[2023-07-10 08:25] LABS: CARBON DIOXIDE 23 mEq/L (21-32); CHLORIDE 105 mEq/L (98-107); CREATININE 0.8 mg/dL (0.6-1.3); GLUCOSE 139 mg/dL (70-105); PHOSPHORUS 2.8 mg/dL (2.5-4.9); POTASSIUM 4.3 mEq/L (3.5-5.1); SODIUM 136 mEq/L (136-145); UREA NITROGEN BLOOD 14 mg/dL (9-23)
[2023-07-10] MEDS: ENOXAPARIN 40MG/0.4ML SYR SUBCUT SCH (08:30)
[2023-07-10] MEDS: MAGNESIUM OXIDE 400MG TABLET PO SCH (08:30)
[2023-07-10] MEDS: ACETAMINOPHEN 650MG/20.3ML UDC GT PRN (09:01)
[2023-07-10] MEDS ORDERED: MAGNESIUM OXIDE 400MG TABLET PO NR (10:15)
[2023-07-10] MEDS: SODIUM CHLORIDE 0.9% 1,000 ML IV SCH ×2 (10:21→23:30)
[2023-07-10] MEDS: INSULIN GLARGINE 100 UNITS/ML SUBCUT SCH (10:32)
[2023-07-10 12:00] VITALS: BP 123/57; PULSE 81; RESP 19; TEMP 97.9
[2023-07-10] MEDS ORDERED: MAGNESIUM 2 G PREMIX 50 ML IV NR (13:00)
[2023-07-10 16:00] VITALS: BP 119/67; PULSE 74; RESP 18; TEMP 97.7
[2023-07-10] MEDS: DAPTOMYCIN 750 MG in SODIUM CHLORIDE 0.9% 50 ML IV SCH (17:00)
[2023-07-10] MEDS: ENOXAPARIN 30MG/0.3ML SYR SUBCUT SCH (21:00)
[2023-07-11] VITALS: BP 129/66; PULSE 79; RESP 20; TEMP 97.7
[2023-07-11 04:00] VITALS: BP 104/56; PULSE 71; RESP 20; TEMP 97.5
[2023-07-11 05:59] LABS: BASOPHILS % 0.6 % (0.0-2.0); EOSINOPHILS % 1.8 % (0.0-5.0); HEMATOCRIT. 27.1 % (42.0-52.0); HEMOGLOBIN. 8.8 g/dL (14.0-18.0); LYMPHOCYTES % 10.6 % (20.0-50.0); MEAN CORPUSCULAR HEMOGLOBIN 28.6 pg (28.0-32.0); MEAN CORPUSCULAR HGB CONC 32.3 g/dL (31.0-37.0); MEAN CORPUSCULAR VOLUME 88.6 fL (80.0-94.0); MEAN PLATELET VOLUME 7.9 fl (7.4-10.4); MONOCYTES % 5.2 % (2.0-8.0); NEUTROPHILS % 81.8 % (40.0-76.0); PLATELET 270 x1000/uL (130-400); RED BLOOD CELL COUNT 3.06 mill/uL (4.7-6.1); RED CELL DISTRIBUTION WIDTH 20.7 % (11.6-14.6); WHITE BLOOD COUNT 10.1 x1000/uL (4.5-11.0)
[2023-07-11] MEDS: PIPERACILLIN/TAZOBACTAM 3.375 G in DEXTROSE 5% WATER 50 ML IV SCH ×2 (06:00→14:35)
[2023-07-11] MEDS: BLOOD SUGAR DIAGNOSTIC STRIP TEST SCH ×3 (07:20→17:20)
[2023-07-11 08:00] VITALS: BP 131/64; PULSE 82; RESP 19; TEMP 97.6
[2023-07-11 09:04] LABS: CALCIUM 9.1 mg/dL (8.7-10.4); CARBON DIOXIDE 23 mEq/L (21-32); CHLORIDE 106 mEq/L (98-107); CREATININE 0.9 mg/dL (0.6-1.3); GLUCOSE 118 mg/dL (70-105); POTASSIUM 4.4 mEq/L (3.5-5.1); SODIUM 137 mEq/L (136-145); UREA NITROGEN BLOOD 11 mg/dL (9-23)
[2023-07-11] MEDS: ENOXAPARIN 30MG/0.3ML SYR SUBCUT SCH (10:00)
[2023-07-11 12:00] VITALS: BP 119/62; PULSE 80; TEMP 97.7
[2023-07-11] MEDS: INSULIN LISPRO 100 UNITS/ML SUBCUT SCH ×2 (12:50→17:59)
[2023-07-11] MEDS: SODIUM CHLORIDE 0.9% 1,000 ML IV SCH (12:50)
[2023-07-11] MEDS ORDERED: KETOROLAC 15MG/ML VIAL IV PRN (13:30)
[2023-07-11 16:00] VITALS: BP 123/57; PULSE 76; RESP 19; TEMP 97.9
[2023-07-11] MEDS ORDERED: ONDANSETRON 4MG ODT PO PRN (17:03)
[2023-07-11] MEDS: DAPTOMYCIN 750 MG in SODIUM CHLORIDE 0.9% 50 ML IV SCH (17:35)
[2023-07-11 18:38] VITALS: BP 123/57; PULSE 76; TEMP 97.9; O2SAT 97
[2023-07-11 22:15] LABS: FOLIC ACID (FOLATE) SERUM 15.34 ng/mL (>5.38)
[2023-07-11 22:28] LABS: VITAMIN B12 SERUM > 2000 pg/mL (211-911)
== END 2023-07-11 18:58 | DRG 872 ==
LOC: ER 16:38 → 6EST 21:55 → EDBEDREQTM 22:12 → EDBEDREQ 22:12
PROVIDERS: ADMIT Internal Medicine; ATTEND Internal Medicine
DX: A41.9 Sepsis, unspecified organism (principal); E11.52 Type 2 diabetes mellitus with diabetic peripheral angiopathy with gangrene; E87.1 Hypo-osmolality and hyponatremia; L02.612 Cutaneous abscess of left foot; L03.116 Cellulitis of left lower limb; D64.9 Anemia, unspecified; R94.4 Abnormal results of kidney function studies; E87.5 Hyperkalemia; R74.01 Elevation of levels of liver transaminase levels; E11.69 Type 2 diabetes mellitus with other specified complication; E78.5 Hyperlipidemia, unspecified; E83.42 Hypomagnesemia; I10 Essential (primary) hypertension; J45.909 Unspecified asthma, uncomplicated; K59.00 Constipation, unspecified; Z79.4 Long term (current) use of insulin
CPT/HCPCS: 36415; 71045; 73700; 80048; 80053; 80202; 82010; 82550; 82607; 82728; 82746; 82962; 83036; 83540; 83550; 83605; 83735; 84100; 84145; 84439; 84443; 85025; 85651; 87070; 93970; 93971; 97162; 97165; 99285; J0878; J1650; J1815; J1885; J2543; J3370; J3475; J7030; J7060

== ENCOUNTER 2023-07-18 16:59 | Inpatient (IN) | payer BC, MEDICARE ==
[~2023-07-18] VITALS: Ht 172.7 cm; Wt 96.6 kg
[~2023-07-18 16:59] MED LIST changes: -IOHEXOL-350 100 ML BOTTLE ONE; -NITROGLYCERIN SPRAY/4.9GM CAN TL ONE; +TIMO15DR12 EACHEYE
[2023-07-18] MEDS ORDERED: HYDROCODONE/ACETAMINOPHEN 5/325MG TABLET PO PRN (17:30)
[2023-07-18] MEDS ORDERED: ONDANSETRON HCL 4MG TABLET PO PRN (17:30)
[2023-07-18] MEDS ORDERED: CLONIDINE 0.1MG TABLET PO PRN (17:30)
[2023-07-18] MEDS ORDERED: MAGNESIUM/ALUMINUM HYDROXIDE/SIMETHICONE 30ML UDC PO PRN (17:30)
[2023-07-18] MEDS ORDERED: TRAMADOL 50MG TABLET PO PRN (17:30)
[2023-07-18] MEDS ORDERED: BISACODYL 10MG SUPP PR PRN (17:45)
[2023-07-18] MEDS ORDERED: DEXTROSE 50% WATER 50ML SYRINGE IV PRN (17:45)
[2023-07-18] MEDS: INSULIN LISPRO 100 UNITS/ML SUBCUT SCH ×2 (17:50→20:52)
[2023-07-18 20:00] VITALS: BP 120/64; PULSE 82; RESP 17; TEMP 96.2
[2023-07-18] MEDS ORDERED: DAPTOMYCIN 750 MG in SODIUM CHLORIDE 0.9% 50 ML IV SCH (20:00)
[2023-07-18] MEDS ORDERED: NALOXONE HCL 0.4MG/ML VIAL IV PRN (20:30)
[2023-07-18] MEDS: BLOOD SUGAR DIAGNOSTIC STRIP TEST SCH (20:52)
[2023-07-18] MEDS ORDERED: ENOXAPARIN 30MG/0.3ML SYR SUBCUT SCH (21:00)
[2023-07-18] MEDS: DAPTOMYCIN 750 MG in SODIUM CHLORIDE 0.9% 50 ML IV SCH (21:00)
[2023-07-18] MEDS: PIPERACILLIN/TAZOBACTAM 3.375 G in DEXTROSE 5% WATER 50 ML IV SCH (21:57)
[2023-07-18] MEDS ORDERED: INSULIN GLARGINE 100 UNITS/ML SUBCUT SCH (22:00)
[2023-07-19 04:00] VITALS: BP 121/52; PULSE 84; RESP 18; TEMP 98.7
[2023-07-19] MEDS: BLOOD SUGAR DIAGNOSTIC STRIP TEST SCH ×4 (05:51→20:53)
[2023-07-19] MEDS: INSULIN LISPRO 100 UNITS/ML SUBCUT SCH ×4 (05:51→22:23)
[2023-07-19] MEDS: PIPERACILLIN/TAZOBACTAM 3.375 G in DEXTROSE 5% WATER 50 ML IV SCH ×3 (05:51→20:53)
[2023-07-19] MEDS ORDERED: IOHEXOL-350 100 ML BOTTLE ONE (07:45)
[2023-07-19 07:46] LABS: BASOPHILS % 0.6 % (0.0-2.0); EOSINOPHILS % 1.2 % (0.0-5.0); HEMATOCRIT. 24.7 % (42.0-52.0); HEMOGLOBIN. 8.1 g/dL (14.0-18.0); LYMPHOCYTES % 7.1 % (20.0-50.0); MEAN CORPUSCULAR HEMOGLOBIN 28.5 pg (28.0-32.0); MEAN CORPUSCULAR HGB CONC 32.7 g/dL (31.0-37.0); MEAN CORPUSCULAR VOLUME 87.2 fL (80.0-94.0); MEAN PLATELET VOLUME 7.6 fl (7.4-10.4); MONOCYTES % 11.5 % (2.0-8.0); NEUTROPHILS % 79.6 % (40.0-76.0); PLATELET 439 x1000/uL (130-400); RED BLOOD CELL COUNT 2.84 mill/uL (4.7-6.1); RED CELL DISTRIBUTION WIDTH 19.6 % (11.6-14.6); WHITE BLOOD COUNT 12.3 x1000/uL (4.5-11.0)
[2023-07-19] MEDS: FERROUS SULFATE 325MG TABLET PO SCH ×3 (07:50→17:50)
[2023-07-19 08:00] VITALS: BP 131/67; PULSE 85; RESP 20; TEMP 97.9
[2023-07-19 08:43] LABS: ALANINE AMINOTRANSFERASE 15 IU/L (10-49); ALBUMIN 3.2 g/dL (3.2-4.8); ASPARTATE AMINOTRANSFERASE 30 IU/L (<34); BILIRUBIN TOTAL 0.9 mg/dL (0.1-1.0); CALCIUM 10.2 mg/dL (8.7-10.4); CARBON DIOXIDE 26 mEq/L (21-32); CHLORIDE 103 mEq/L (98-107); CREATININE 0.8 mg/dL (0.6-1.3); GLUCOSE 135 mg/dL (70-105); POTASSIUM 4.4 mEq/L (3.5-5.1); PROTEIN TOTAL 7.8 g/dL (6.0-8.3); SODIUM 135 mEq/L (136-145); UREA NITROGEN BLOOD 10 mg/dL (9-23)
[2023-07-19] MEDS: SILVER SULFADIAZINE 1% CREAM 50GM TOP SCH (09:00)
[2023-07-19] MEDS: ASCORBIC ACID 500 MG TABLET PO SCH (09:00)
[2023-07-19] MEDS: DOCUSATE SODIUM 100MG CAPSULE PO SCH ×2 (09:00→17:00)
[2023-07-19] MEDS ORDERED: HEPARIN 1000 UNITS/ML 10ML ONE (09:36)
[2023-07-19] MEDS ORDERED: IODIXANOL 320MG/ML 100 ML BOTTLE IV ONE (09:36)
[2023-07-19] MEDS ORDERED: LIDOCAINE HCL 1% 20ML VIAL (Pyxis) INJ ONE (09:39)
[2023-07-19] MEDS ORDERED: FENTANYL CITRATE/PF 50MCG/ML 2ML VIAL ONE (10:13)
[2023-07-19] MEDS ORDERED: MIDAZOLAM HCL 2 MG/2 ML VIAL ONE (10:13)
[2023-07-19 11:29] VITALS: BP 133/69; PULSE 85; RESP 18; TEMP 88
[2023-07-19 12:39] VITALS: BP 133/69; PULSE 80; RESP 18; TEMP 98
[2023-07-19] MEDS ORDERED: MAGNESIUM 2 G PREMIX 50 ML IV NR (15:30)
[2023-07-19 17:03] VITALS: BP 116/51; PULSE 85; RESP 20; TEMP 98
[2023-07-19 20:00] VITALS: BP 129/60; PULSE 80; RESP 18; TEMP 97.5
[2023-07-19] MEDS: DAPTOMYCIN 750 MG in SODIUM CHLORIDE 0.9% 50 ML IV SCH (21:00)
[2023-07-20] VITALS: BP 144/79; PULSE 87; RESP 18; TEMP 96.8
[2023-07-20 04:00] VITALS: BP 136/68; PULSE 83; RESP 18; TEMP 97.6
[2023-07-20] MEDS: PIPERACILLIN/TAZOBACTAM 3.375 G in DEXTROSE 5% WATER 50 ML IV SCH ×2 (06:01→22:50)
[2023-07-20] MEDS: BLOOD SUGAR DIAGNOSTIC STRIP TEST SCH ×4 (06:43→21:00)
[2023-07-20] MEDS: INSULIN LISPRO 100 UNITS/ML SUBCUT SCH ×4 (07:50→21:00)
[2023-07-20 08:00] VITALS: BP 137/67; PULSE 88; RESP 18; TEMP 97.9
[2023-07-20 08:01] LABS: HEMATOCRIT. 24.4 % (42.0-52.0); HEMOGLOBIN. 7.7 g/dL (14.0-18.0); MEAN CORPUSCULAR HEMOGLOBIN 27.4 pg (28.0-32.0); MEAN CORPUSCULAR HGB CONC 31.5 g/dL (31.0-37.0); MEAN CORPUSCULAR VOLUME 86.9 fL (80.0-94.0); MEAN PLATELET VOLUME 7.7 fl (7.4-10.4); PLATELET 418 x1000/uL (130-400); RED BLOOD CELL COUNT 2.81 mill/uL (4.7-6.1); RED CELL DISTRIBUTION WIDTH 19.4 % (11.6-14.6); WHITE BLOOD COUNT 12.2 x1000/uL (4.5-11.0)
[2023-07-20 08:14] LABS: DIFFERENTIAL COMMENT 1
[2023-07-20 08:24] LABS: CALCIUM 10.5 mg/dL (8.7-10.4); CARBON DIOXIDE 26 mEq/L (21-32); CHLORIDE 103 mEq/L (98-107); CREATININE 0.8 mg/dL (0.6-1.3); GLUCOSE 128 mg/dL (70-105); POTASSIUM 4.4 mEq/L (3.5-5.1); SODIUM 135 mEq/L (136-145); UREA NITROGEN BLOOD 10 mg/dL (9-23)
[2023-07-20] MEDS: SILVER SULFADIAZINE 1% CREAM 50GM TOP SCH (09:00)
[2023-07-20] MEDS: DOCUSATE SODIUM 100MG CAPSULE PO SCH ×2 (09:20→17:00)
[2023-07-20] MEDS: FERROUS SULFATE 325MG TABLET PO SCH ×3 (09:20→17:50)
[2023-07-20] MEDS: ASCORBIC ACID 500 MG TABLET PO SCH (09:21)
[2023-07-20 11:01] LABS: ANISOCYTOSIS 2+; PLATELET ESTIMATE INCREASED
[2023-07-20 12:00] VITALS: BP 121/60; PULSE 84; RESP 18; TEMP 97.7
[2023-07-20] MEDS ORDERED: MAGNESIUM 2 G PREMIX 50 ML IV NR (14:00)
[2023-07-20 16:00] VITALS: BP 122/80; PULSE 84; RESP 18; TEMP 97.8
[2023-07-20 16:37] LABS: PHOSPHORUS 2.8 mg/dL (2.5-4.9)
[2023-07-20 20:00] VITALS: BP 143/66; PULSE 77; RESP 18; TEMP 97.7
[2023-07-20] MEDS: DAPTOMYCIN 750 MG in SODIUM CHLORIDE 0.9% 50 ML IV SCH (21:46)
[2023-07-21] VITALS: BP 117/62; PULSE 83; RESP 18; TEMP 98.1
[2023-07-21 00:32] LABS: HEMATOCRIT 26.7 % (42.0-52.0); HEMOGLOBIN 8.3 g/dL (14.0-18.0)
[2023-07-21 04:00] VITALS: BP 137/66; PULSE 90; RESP 18; TEMP 97.2
[2023-07-21] MEDS: PIPERACILLIN/TAZOBACTAM 3.375 G in DEXTROSE 5% WATER 50 ML IV SCH ×2 (06:16→14:00)
[2023-07-21] MEDS: BLOOD SUGAR DIAGNOSTIC STRIP TEST SCH ×2 (07:20→12:20)
[2023-07-21] MEDS: INSULIN LISPRO 100 UNITS/ML SUBCUT SCH ×2 (07:50→12:50)
[2023-07-21 08:19] VITALS: PULSE 85; RESP 19; TEMP 97.5
[2023-07-21] MEDS: SILVER SULFADIAZINE 1% CREAM 50GM TOP SCH (09:00)
[2023-07-21] MEDS: ASCORBIC ACID 500 MG TABLET PO SCH (09:56)
[2023-07-21] MEDS: DOCUSATE SODIUM 100MG CAPSULE PO SCH (09:56)
[2023-07-21] MEDS: FERROUS SULFATE 325MG TABLET PO SCH ×2 (09:56→12:50)
[2023-07-21 12:10] VITALS: BP 134/70; PULSE 79; RESP 19; TEMP 97.2
[2023-07-21 13:26] VITALS: BP 133/88; PULSE 88; TEMP 98.5; O2SAT 98
[2023-07-21 16:16] VITALS: BP 135/71; PULSE 78; RESP 20; TEMP 97
[2023-07-22] MEDS ORDERED: ERGOCALCIFEROL 50000UNITS CAPSULE PO SCH (09:00)
== END 2023-07-21 19:07 | DRG 872 ==
LOC: 6WST 16:59
PROVIDERS: ADMIT Internal Medicine; ATTEND Internal Medicine
PROC: B41G1ZZ Fluoroscopy of Left Lower Extremity Arteries using Low Osmolar Contrast (ICD-10-PCS; principal; 2023-07-19)
DX: A41.9 Sepsis, unspecified organism (principal); E87.1 Hypo-osmolality and hyponatremia; L03.116 Cellulitis of left lower limb; M86.9 Osteomyelitis, unspecified; D64.9 Anemia, unspecified; E11.51 Type 2 diabetes mellitus with diabetic peripheral angiopathy without gangrene; E11.69 Type 2 diabetes mellitus with other specified complication; Z20.822 Contact with and (suspected) exposure to COVID-19; E78.5 Hyperlipidemia, unspecified; E83.42 Hypomagnesemia; E87.5 Hyperkalemia; K59.00 Constipation, unspecified; M71.22 Synovial cyst of popliteal space [Baker], left knee; Z53.20 Procedure and treatment not carried out because of patient's decision for unspecified reasons; E80.6 Other disorders of bilirubin metabolism; E66.9 Obesity, unspecified; R59.9 Enlarged lymph nodes, unspecified; R74.8 Abnormal levels of other serum enzymes; R94.4 Abnormal results of kidney function studies; I70.209 Unspecified atherosclerosis of native arteries of extremities, unspecified extremity; K42.9 Umbilical hernia without obstruction or gangrene; K74.60 Unspecified cirrhosis of liver; Z79.4 Long term (current) use of insulin; Z68.32 Body mass index [BMI] 32.0-32.9, adult; Z79.82 Long term (current) use of aspirin; Z85.47 Personal history of malignant neoplasm of testis
CPT/HCPCS: 36246; 36415; 75710; 76700; 80048; 80053; 82378; 82962; 83036; 83735; 84100; 84145; 85014; 85018; 85025; 86301; 87426; 93970; 97162; 97166; 97530; 97535; C1760; C1769; C1893; J0878; J1644; J1650; J1815; J2250; J2543; J3010; J3475; J3490; J7060; Q9967